=== PATIENT | female | born 1980 | race Two or more races ===

== ENCOUNTER 2024-07-14 06:24 | Day surgery (SDC) | payer OTHER, SELFPAY | END 2024-07-14 09:13 | disposition home or self-care (01) | LOC: GI 06:24 | PROVIDERS: ATTENDING PHYSICIAN Internal Medicine Gastroenterology | DX: Z12.11 Encounter for screening for malignant neoplasm of colon (principal); D12.2 Benign neoplasm of ascending colon; D12.3 Benign neoplasm of transverse colon; Z83.719 Family history of colon polyps, unspecified | CPT/HCPCS: 45385; 45380; 88305 ==